=== PATIENT | male | born 1960 | race African-American/Black ===

== ENCOUNTER 2020-07-12 19:11 | Emergency (ER) | payer MEDICAID ==
[~2020-07-12] VITALS: Ht 172.7 cm; Wt 80.0 kg
[2020-07-12] MEDS ORDERED: MORPHINE SULFATE 4 MG/ML CPJ (NOT FOR IM USE) IV STA (19:23)
[2020-07-12 20:10] LABS: BASOPHILS % 0.2 % (0.0-2.0); EOSINOPHILS % 1.3 % (0.0-5.0); HEMATOCRIT. 45.6 % (42.0-52.0); HEMOGLOBIN. 15.3 g/dL (14.0-18.0); LYMPHOCYTES % 11.6 % (20.0-50.0); MEAN CORPUSCULAR HEMOGLOBIN 31.6 pg (28.0-32.0); MEAN CORPUSCULAR VOLUME 93.9 fL (80.0-94.0); MEAN PLATELET VOLUME 8.1 fl (7.4-10.4); MONOCYTES % 4.8 % (2.0-8.0); NEUTROPHILS % 82.1 % (40.0-76.0); PLATELET 172 x1000/uL (130-400); RED BLOOD CELL COUNT 4.86 mill/uL (4.7-6.1); RED CELL DISTRIBUTION WIDTH 13.5 % (11.6-14.6)
[2020-07-12 20:12] LABS: CHLORIDE 109 mEq/L (98-107)
[2020-07-12 20:16] LABS: INR 1.1; PROTHROMBIN TIME 11.4 sec (9.6-11.0)
[2020-07-12] MEDS ORDERED: IOHEXOL-300 100 ML BOTTLE ONE (23:18)
[2020-07-12 23:52] LABS: CLARITY URINE CLEAR (CLEAR); COLOR URINE YELLOW (YELLOW); KETONES URINE 1+ (NEGATIVE); LEUKOCYTE ESTERASE URINE NEGATIVE (NEGATIVE); NITRITE URINE NEGATIVE (NEGATIVE); OCCULT BLOOD URINE NEGATIVE (NEGATIVE); PH URINE 5.5 (4.5-8.0); PROTEIN URINE 1+ (NEGATIVE)
[2020-07-13] MEDS ORDERED: KETOROLAC 30MG/ML VIAL IV NR (01:00)
[2020-07-13] MEDS ORDERED: AZITHROMYCIN 500 MG TABLET PO ONE (01:15)
[2020-07-13 01:24] VITALS: BP 154/86
== END 2020-07-13 01:48 | disposition home or self-care (01) ==
LOC: ER 19:11
DX: Z03.818 Encounter for observation for suspected exposure to other biological agents ruled out (principal); K52.9 Noninfective gastroenteritis and colitis, unspecified; J18.9 Pneumonia, unspecified organism; K76.89 Other specified diseases of liver; I10 Essential (primary) hypertension
CPT/HCPCS: 36415; 74177; 76700; 80053; 81003; 83605; 83690; 85025; 85610; 96374; 96375; 99285; C9803; J1885; J2270; Q9967; U0003

== ENCOUNTER 2021-11-10 17:14 | Emergency (ER) | payer MEDICAID, OTHER ==
[~2021-11-10] VITALS: Ht 180.3 cm; Wt 87.0 kg
[2021-11-10 17:17] VITALS: BP 130/80
== END 2021-11-10 21:13 | disposition left against medical advice (07) ==
LOC: ER 17:14
DX: R07.89 Other chest pain (principal); Z53.21 Procedure and treatment not carried out due to patient leaving prior to being seen by health care provider